=== PATIENT | female | born 1955 | race Caucasian/White ===

== ENCOUNTER 2018-12-27 10:52 | Outpatient (REF) | payer MEDICAID, SELFPAY ==
[2018-12-27 20:19] LABS: Anion Gap 5.4 mmol/L (3-11); BUN 15 mg/dL (7-18); CO2 30.6 mmol/L (21.0-32.0); CREATININE 0.72 mg/dL (0.55-1.02); Calcium 9.1 mg/dL (8.5-10.1); Chloride 103 mmol/L (98-107); Glucose 88 mg/dL (70-100); Potassium 4.1 mmol/L (3.5-5.1); Sodium 139 mmol/L (136-145)
[2018-12-27 20:59] LABS: Hemoglobin A1C 5.4 % (4.5-6.2)
== END 2018-12-27 11:12 ==
LOC: NCHCN 10:52
PROVIDERS: PCP Internal Medicine; Visit Provider Physician Assistant Medical
DX: I10 Essential (primary) hypertension (principal); Z13.1 Encounter for screening for diabetes mellitus
CPT/HCPCS: 80048; 83036

== ENCOUNTER 2020-01-01 11:01 | Outpatient (REF) | payer MEDICAID, SELFPAY ==
[2020-01-01 19:40] LABS: Abs Immature Grans 0.01 k/cumm (0.0-0.09); Absolute Basophil Count 0.03 k/cumm (0.0-0.2); Absolute Eosinophil Count 0.14 k/cumm (0.0-0.7); Absolute Monocyte Count 0.53 k/cumm (0.11-0.7); Absolute Neutrophil Count 5.38 k/cumm (1.2-6.7); Basophils % 0.4; HCT 39.6 % (36.0-46.0); HGB 12.8 g/dL (12.0-15.5); Immature Grans % 0.1 %; Lymphocytes % 14.1; Mean Corp. HGB Concentration 32.3 g/dL (32.0-36.0); Mean Corpuscular Hemoglobin 28.4 pg (27.0-33.0); Mean Corpuscular Volume 87.8 fL (80-95); Mean Platelet Volume 10.7 fL (8.0-11.0); Monocytes % 7.5; Neutrophils % 75.9; Platelet Count 271 x1000/uL (130-400); RBC 4.51 m/cumm (4.00-5.20); White Blood Cell Count 7.09 k/cumm (4.4-10.8)
[2020-01-01 20:22] LABS: ALT 14 U/L (14-59); AST 18 U/L (15-37); Albumin 3.9 g/dL (3.4-5.0); Alkaline Phosphatase 73 U/L (46-116); Anion Gap 8.8 mmol/L (3-11); BUN 15 mg/dL (7-18); Bilirubin, Total 0.7 mg/dL (0.2-1.0); CO2 28.2 mmol/L (21.0-32.0); CREATININE 0.85 mg/dL (0.55-1.02); Calcium 9.3 mg/dL (8.5-10.1); Calculated LDL 80 mg/dL (<100); Chloride 104 mmol/L (98-107); Cholesterol 175 mg/dL (<200); Glucose 90 mg/dL (74-106); HDL Cholesterol 83 mg/dL (40-60); Potassium 3.9 mmol/L (3.5-5.1); Sodium 141 mmol/L (136-145); Total Protein 7.2 g/dL (6.4-8.2); Triglyceride 64 mg/dL (<150)
[2020-01-01 20:34] LABS: Vitamin D 25 Total 98.1 ng/ml (30-100)
[2020-01-03 10:11] LABS: Hepatitis C Ab w Rflx HCV PCR Negative (Negative)
== END 2020-01-01 11:21 ==
LOC: NCHCN 11:01
PROVIDERS: PCP Internal Medicine; Visit Provider Physician Assistant
DX: E55.9 Vitamin D deficiency, unspecified (principal); I10 Essential (primary) hypertension; Z11.59 Encounter for screening for other viral diseases
CPT/HCPCS: 80053; 80061; 82306; 86803; 84443; 85025

== ENCOUNTER 2021-02-04 18:23 | Outpatient (REF) | payer MEDICAID, SELFPAY ==
[2021-02-04 20:49] LABS: BUN 15 mg/dL (7-18); CREATININE 0.8 mg/dL (0.55-1.02); Calcium 9.2 mg/dL (8.5-10.1); Calculated LDL 85 mg/dL (<100); Chloride 105 mmol/L (98-107); Cholesterol 160 mg/dL (<200); Glucose 93 mg/dL (74-106); HDL Cholesterol 61 mg/dL (40-60); Potassium 3.9 mmol/L (3.5-5.1); Sodium 143 mmol/L (136-145); Triglyceride 70 mg/dL (<150)
== END 2021-02-04 18:24 | disposition home or self-care (01) ==
LOC: NCHCN 18:23
PROVIDERS: PCP Internal Medicine; Visit Provider Physician Assistant
DX: I10 Essential (primary) hypertension (principal)
CPT/HCPCS: 80048; 80061

== ENCOUNTER 2022-04-02 12:18 | Outpatient (REF) | payer MEDICARE, MEDICAID, SELFPAY ==
[2022-04-02 19:35] LABS: BUN 18 mg/dL (7-18); CREATININE 0.9 mg/dL (0.55-1.02); Calcium 9.4 mg/dL (8.5-10.1); Chloride 104 mmol/L (98-107); Estimated GFR 70.51 (mL/min/1.73m2); Glucose 85 mg/dL (74-106); Potassium 4.1 mmol/L (3.5-5.1); Sodium 141 mmol/L (136-145)
== END 2022-04-02 12:19 | disposition home or self-care (01) ==
LOC: NCHCN 12:18
PROVIDERS: PCP Internal Medicine; Visit Provider Physician Assistant
DX: I10 Essential (primary) hypertension (principal)
CPT/HCPCS: 80048

== ENCOUNTER 2022-06-18 12:02 | Outpatient (REF) | payer MEDICARE, MEDICAID, SELFPAY ==
[2022-06-18 19:43] LABS: Bilirubin Negative (Negative); Blood Negative (Negative); Clarity Cloudy (Clear); Glucose Negative (Negative); Ketones Negative (Negative); Leukocyte Esterase Negative (Negative); Nitrite Negative (Negative); Specific Gravity >= 1.030 (1.005-1.025); Urobilinogen 0.2 EU/dL (Up TO 0.2)
[2022-06-18 19:55] LABS: TSH (W/Ref FT4) 1.81 uIU/mL (0.36-3.74)
[2022-06-18 20:03] LABS: Bacteria Few HPF (Negative); C & S Indicated? C&S Done As Ordered; Casts Negative LPF (Negative); Crystals Moderate Amorphous HPF (Negative); Epithelial Cells Few HPF (Negative); Mucus Negative (Negative); RBC 0-2 HPF (0-2)
== END 2022-06-18 12:03 | disposition home or self-care (01) ==
LOC: NCHCN 12:02
PROVIDERS: PCP Internal Medicine; Visit Provider Physician Assistant
DX: L65.9 Nonscarring hair loss, unspecified (principal); R39.9 Unspecified symptoms and signs involving the genitourinary system
CPT/HCPCS: 81003; 81015; 84443; 87086

== ENCOUNTER 2022-10-22 09:23 | Day surgery (SDC) | payer MEDICARE, MEDICAID, SELFPAY ==
[2022-10-22 10:11] VITALS: BP 140/76; PULSE 62; RESP 20; TEMP 36.6; O2SAT 98
--- NOTE | 2022-10-22 10:19 | W.ANESPRE ---
General Info Date of Service Date Performed: 10/22/22 Height: 5 ft 7 in Weight: 70.3 kg Body Mass Index (BMI): 24.3 Surgical Procedure: Operation Date: 10/22/22 12:40 Proposed Procedure Side Surgeon p Cataract Extraction with IOL Implant Right Bang Ramirez MD Meds Allergies and Home Medications Allergies Allergy/AdvReac Type Severity Reaction Status Date / Time adhesive tape Allergy Intermediate Verified 10/22/22 09:59 cephalexin Allergy Intermediate Verified 10/22/22 09:59 clindamycin Allergy Intermediate Verified 10/22/22 09:59 codeine Allergy Intermediate Verified 10/22/22 09:59 epinephrine Allergy Intermediate Verified 10/22/22 09:59 hydrochlorothiazide Allergy Intermediate Verified 10/22/22 10:02 [From Dyazide] hydrocodone Allergy Intermediate Verified 10/22/22 10:02 latex Allergy Intermediate Verified 10/22/22 10:02 lidocaine Allergy Intermediate Verified 10/22/22 10:02 magnesium aluminum silicate Allergy Intermediate Verified 10/22/22 10:02 penicillin V Allergy Intermediate Verified 10/22/22 10:02 spironolactone Allergy Intermediate Verified 10/22/22 10:02 [From Aldactone] Sulfa (Sulfonamide Allergy Intermediate Verified 10/22/22 10:02 Antibiotics) sulfamethoxazole Allergy Intermediate Verified 10/22/22 10:02 [From Bactrim] triamterene [From Dyazide] Allergy Intermediate Verified 10/22/22 10:02 trimethoprim [From Bactrim] Allergy Intermediate Verified 10/22/22 10:02 lisinopril Allergy Mild Verified 10/22/22 10:02 Home Medication Medication Instructions Recorded fluticasone propionate 50 1 spray intranasal BID 10/21/22 mcg/actuation nasal spray,suspension hydroxyzine HCl 25 mg tablet 25 mg PO QID PRN 10/21/22 losartan 50 mg tablet 50 mg PO DAILY 10/21/22 omeprazole 40 mg capsule,delayed 40 mg PO DAILY 10/21/22 release sumatriptan succinate 50 mg tablet 50 mg PO 10/21/22 triamcinolone acetonide 0.1 % 1 applic topical BID 10/21/22 topical cream acetaminophen 500 mg tablet 1,000 mg 10/22/22 cholecalciferol (vitamin D3) 100 1 10/22/22 mcg (4,000 unit) capsule Current Visit Medications: Current Medications Generic Name Dose Route Start Last Admin Trade Name Freq PRN Reason Stop Dose Admin Acetaminophen 1,000 mg 10/22/22 06:00 Acetaminophen 500 Mg Tab PO Q4H PRN PRN Miscellaneous Medication 0 ml 10/22/22 06:00 Tropicam./Phenyleph. (1/2.5%) 5 Ml Btl OD DIRECTED [facility] Miscellaneous Medication 0 ml 10/22/22 06:00 Prednisolone 1%, Moxifloxacin 0.5%, Nepafenac 0.1% 5ml Btl OD DIRECTED [facility] Tetracaine HCl 0 ml 10/22/22 06:00 Tetracaine 0.5% 4 Ml Btl OD DIRECTED [facility] PFSH Active Problems Active Problems: Problem Status Onset Code Nuclear age-related cataract, right eye H25.11 Cortical cataract of right eye H26.9 Medical History Medical History Cataract GERD (gastroesophageal reflux disease) Hypertension Itching Surgical History Surgical History H/O vein stripping History of cholecystectomy History of colonoscopy History of hernia repair History of knee replacement Hx of carpal tunnel repair bilateral Hx of esophagogastroduodenoscopy Tobacco Smoking/Tobacco Use Status: Never Alcohol Alcohol Intake: current Alcohol intake frequency: a few times a week Alcohol type: beer Substance Use Substance use type: does not use Details: alcohol: t-5 Vital Signs and Lab Results Vital Signs Most Recent Vital Signs in EMR: Most Recent Vital Signs Temp Pulse Resp BP Pulse Ox 36.6 C 62 20 140/76 98 10/22/22 10:11 10/22/22 10:11 10/22/22 10:11 10/22/22 10:11 10/22/22 10:11 Lab Results Blood Type / Crossmatch: No Data to Display Complete Blood Count: No Data to Display Complete Metabolic Panel: No Data to Display Liver Function Panel: No Data to Display Coagulation Panel: No Data to Display Cardiac Panel: No Data to Display Arterial Blood Gas: No Data to Display Venous Blood Gas: No Data to Display Pancreas Panel: No Data to Display Thyroid Panel: No Data to Display Infectious Disease: No Data to Display Blood Cultures: No Data to Display Toxicology Panel: No Data to Display Anesthesia Assessment and Plan Anesthesia History Personal History: No History of Anesthesia Complications Family History: No Family History of Anesthesia Complications Exercise Tolerance Exercise Tolerance: Metabolic Equivalents>4 Cardiac & Pulmonary Exam Cardiac Exam: Normal S1/S2 Heart Sounds Pulmonary Exam: Clear Bilateral Breath Sounds Implantable Cardiac Device Does patient have a Pacemaker or an ICD?: No Airway Exam Known Difficult Airway: No Mallampati Class: 2 Mouth Opening: Normal (> 3cm) Thyromental Distance: Greater than 3 cm Neck Range of Motion: Full ROM Neck Circumference: Normal Teeth Condition: Normal Dentition ASA Classification ASA Score: ASA 2 Emergency Case?: No NPO Status NPO Status: NPO Clears >2 hours, Solids >8 hours Anesthesia Plan Resuscitation Status: Full Code Anesthesia Technique: MAC Anesthesia Airway Planned: Natural Airway Monitors Used: Standard Monitors
[2022-10-22 11:00] VITALS: BMI 24.3
[2022-10-22] MEDS: Tropicam./Phenyleph. (1/2.5%) 5 ML BTL OD ×3 (11:05→11:22)
[2022-10-22] MEDS: Lidocaine 1% Pres-Free 5 ML VIAL (11:57)
[2022-10-22] MEDS: Tetracaine 0.5% 4 ML BTL OD (11:57)
[2022-10-22] MEDS: Duovisc Viscoelastic System EACH 1 EACH (11:58)
[2022-10-22] MEDS: Balanced Salt Soln.-PLUS 500 ML BAG (11:58)
[2022-10-22] MEDS: Povidone-Iodine Ophth 30 ML BTL (11:59)
[2022-10-22] MEDS: Phenylephrine/Lidocaine (15/10) MG/ML 1 ML VIAL (11:59)
[2022-10-22 12:10] VITALS: BP 142/82; PULSE 50; RESP 16; TEMP 36.5; O2SAT 98
--- NOTE | 2022-10-22 12:11 | PDOC.DSDIS_ITS ---
Date of service: 10/22/22 Time of Service: 12:11 Discharge Plan Disposition Patient Disposition: Home Discharge Details Attending Provider: Bang Ramirez Primary Care Provider: Elsy Wolff Home Meds and New Rx's Prescriptions: No Action losartan 50 mg Tablet 50 mg PO DAILY sumatriptan succinate 50 mg Tablet 50 mg PO omeprazole 40 mg Capsule,Delayed Release(Dr/Ec) 40 mg PO DAILY triamcinolone acetonide 0.1 % Cream 1 applic TOPICAL BID hydroxyzine HCl 25 mg Tablet 25 mg PO QID PRN fluticasone propionate 50 mcg/actuation [place],Suspension 1 spray INTRANASAL BID Rx Instructions: administer into each nostril acetaminophen 500 mg Tablet 1,000 mg Vitamin D3 100 mcg (4,000 unit) Capsule 1 Discharge Instructions Stand Alone Forms: Post-op Topical Cataract, Press Ganey (DSU) Discharge Orders Discharge Orders: Discharge Order (Routine); Ordered 10/22/22 Ordered By: Bang Ramirez DS: Diagnosis Discharge Diagnosis (1) Nuclear age-related cataract, right eye: Status: Resolved (2) Cortical cataract of right eye: Status: Resolved
--- NOTE | 2022-10-22 12:14 | W.PM.OP ---
Date of service: 10/22/22 Time of Service: 12:14 Operative Note Operative Note DATE OF PROCEDURE: 10/22/22 PRE-OP DIAGNOSIS: Nuclear/cortical cataract, right eye POST-OP DIAGNOSIS: same PROCEDURE: Cataract extraction using phacoemulsification with intraocular lens implant, right eye SURGEON: Bang Ramirez ANESTHESIA TYPE: Local By Surgeon and MAC Refer to Anesthesia Record ESTIMATED BLOOD LOSS: 0 PATHOLOGY: none sent COMPLICATIONS: None Patient was transported to: same day Patient's condition: stable Implants: Felix & Felix Tecnis Eyhance [id number] Indications: Progressive visual loss due to cataract, right eye Procedure Description: CATARACT SURGERY OPERATIVE REPORT PREOPERATIVE DIAGNOSIS: 1. Nuclear/cortical cataract, right eye POSTOPERATIVE DIAGNOSIS: Same OPERATION: 1. Cataract extraction using phacoemulsification with posterior chamber intraocular lens implant, right eye. IOL: IOL Manager Requirements/Model: Felix & Felix Tecnis Eyhance DIB00 IOL Power: + 29.0 diopters IOL Serial Number: [id number] Optic Diameter: 6.0mm Haptic/Overall Diameter: 13.0mm PHACO INFO: [place] [employer] Vision System with OZil and Active Fluidics Cumulative Dispersed Energy (CDE): 8.58 seconds SURGEON: Bang Ramirez MD, HARISH ANESTHESIA: Monitored Anesthesia Care (MAC), with local sub-tenon's anesthetic infiltration COMPLICATIONS: None SPECIMENS: None INDICATIONS FOR PROCEDURE: The patient is a 67-year-old lady with history of high hyperopia who has developed a symptomatic nuclear/cortical cataract in her right eye. The option of cataract surgery was to the patient and she wished to proceed. See office notes for details. PROCEDURE: The correct surgical eye was identified and marked as the right eye and the pupil was dilated in the preoperative area using mydriatics and cycloplegics. The dilated pupil size was 8.0 mm. The patient elected to proceed without oral sedation. The patient was brought to the operating room where cardiopulmonary monitoring was instituted and surgical time-out was performed, confirming the correct operative eye and IOL power. Topical anesthesia was administered and ophthalmic povidone-iodine 5% was instilled into the conjunctival fornices. Lidocaine gel was applied to the cornea and the amelia-ocular area was prepped with Betadine 10% solution and draped in the usual sterile fashion for intraocular surgery, including an aperture drape. A Tegaderm transparent film dressing was cut in half and used to cover the lashes and lid margins. Care was taken to sequester the lashes and lid margins under the Tegaderm dressing. A lid speculum was placed between the lids of the operative eye and the Dewayne Lux[employer] Revalia operating microscope was maneuvered into position. Gilmar scissors were then used to make a conjunctival buttonhole approximately 6mm posterior to the limbus in the inferonasal quadrant. Blunt dissection was carried out to expose bare sclera, and a blunt-tipped sub-tenon?s anesthesia cannula was introduced and passed posteriorly along the globe where non-preserved plain lidocaine was injected into posterior sub-Tenon?s space. A sideport knife was used to make a paracentesis port inferotemporally. Intraocular phenylephrine/lidocaine was injected into the anterior chamber. The anterior chamber was filled with viscoelastic. A keratome knife was used to construct a 2-plane near-clear corneal tunnel extending 2.0mm into clear cornea superiortemporally. A flap was raised on the anterior capsule and capsulorhexis forceps were used to complete a continuous curvilinear capsulorhexis of 5.5 mm. Balanced salt solution was then used to perform cortical cleaving hydrodissection and nuclear hydrodelineation until the lens could be freely rotated within the capsular bag. The lens nucleus was then disassembled and removed within the capsular bag and iris plane using phacoemulsification. Residual cortical material was removed using the I/A handpiece. The posterior capsule was carefully polished to remove as much residual lens epithelial cells as safely possible. The capsular bag was then inflated and the anterior chamber deepened with viscoelastic. The lens implant described above was inserted into the capsular bag using the Felix and Az Simplicity pre-loaded injector. A Kuglen hook was used to dial the IOL into position. Residual viscoelastic was then removed first from posterior to the IOL, then from the anterior chamber using the I/A handpiece. The lens implant was noted to center nicely within the capsular bag. The incisions were stromally hydrated, and the anterior chamber was reformed using BSS. Then 0.5cc of moxifloxacin 1.0mg/ml were injected into the capsular bag and anterior chamber. The incisions were checked with a Weck spear and found to be secure. Several drops of ophthalmic povidone-iodine 5% were then applied to the eye followed by two drops of Imprimis combination prednisolone/moxifloxacin/nepafenac solution. The drapes were removed and a clear plastic protective eye shield was placed over the eye. The patient was then returned to Same Day Surgery in stable condition.
--- NOTE | 2022-10-22 12:34 | W.ANESPOSTOP ---
Postoperative Evaluation Date, Time and Location Date Performed: 10/22/22 Time Performed: 12:20 Patient Location: Day Surgery Unit Vital Signs Most Recent Imported Vital Signs: Most Recent Vital Signs Temp Pulse Resp BP Pulse Ox 36.5 C 50 L 16 142/82 H 98 10/22/22 12:10 10/22/22 12:10 10/22/22 12:10 10/22/22 12:10 10/22/22 12:10 Pain Score Most Recent Pain Score: Most Recent Pain Score Pain Level 0 10/22/22 12:10 Assessment Mental Status: Awake (Alert & Oriented to Patient Baseline) Airway and Respiratory Function: Patent airway with normal (patient baseline) respiratory exam Cardiovascular Function: Hemodynamically Stable Hydration Status: Adequately Hydrated Nausea & Vomiting: No Nausea or Vomiting Pain: Pt. Denies Any Pain Peripheral Nerve Block: Patient did not receive a nerve block
== END 2022-10-22 12:37 | disposition home or self-care (01) ==
LOC: SUR 09:25
PROVIDERS: PCP Physician Assistant; Visit Provider Ophthalmology
PROC: (CPT 66984; principal; 2022-10-22 12:30)
DX: H25.11 Age-related nuclear cataract, right eye (principal); I10 Essential (primary) hypertension; H26.9 Unspecified cataract; K21.00 Gastro-esophageal reflux disease with esophagitis, without bleeding
CPT/HCPCS: 66984; V2632

== ENCOUNTER 2022-11-05 06:52 | Day surgery (SDC) | payer MEDICARE, MEDICAID, SELFPAY ==
[2022-11-05 06:59] VITALS: BP 157/80; PULSE 63; RESP 17; TEMP 36.6; O2SAT 97
[2022-11-05] MEDS: Tropicam./Phenyleph. (1/2.5%) 5 ML BTL OS ×3 (07:05→07:15)
--- NOTE | 2022-11-05 07:32 | W.ANESPRE ---
General Info Date of Service Date Performed: 11/05/22 Height: 5 ft 7 in Weight: 71.2 kg Body Mass Index (BMI): 24.5 Surgical Procedure: Operation Date: 11/05/22 08:40 Proposed Procedure Side Surgeon p Cataract Extraction with IOL Implant Left Bang Ramirez MD Meds Allergies and Home Medications Allergies Allergy/AdvReac Type Severity Reaction Status Date / Time adhesive tape Allergy Intermediate Hives Verified 11/05/22 07:26 cephalexin Allergy Intermediate hives, Verified 11/05/22 07:26 itchy clindamycin Allergy Intermediate hives, Verified 11/05/22 07:26 itching codeine Allergy Intermediate hives, Verified 11/05/22 07:26 itching epinephrine Allergy Intermediate Verified 11/05/22 07:10 hydrochlorothiazide Allergy Intermediate hives, Verified 11/05/22 07:26 [From Dyazide] itchy hydrocodone Allergy Intermediate hives, Verified 11/05/22 07:26 itchy latex Allergy Intermediate hives, Verified 11/05/22 07:26 itchy lidocaine Allergy Intermediate pt unsure Verified 11/05/22 07:26 magnesium aluminum silicate Allergy Intermediate hives, Verified 11/05/22 07:26 itchy penicillin V Allergy Intermediate hives, Verified 11/05/22 07:26 itchy spironolactone Allergy Intermediate pt unsure Verified 11/05/22 07:26 [From Aldactone] Sulfa (Sulfonamide Allergy Intermediate hives, Verified 11/05/22 07:26 Antibiotics) itching sulfamethoxazole Allergy Intermediate hives, Verified 11/05/22 07:26 [From Bactrim] itchy triamterene [From Dyazide] Allergy Intermediate hives, Verified 11/05/22 07:26 itching trimethoprim [From Bactrim] Allergy Intermediate hives, Verified 11/05/22 07:26 itchy lisinopril Allergy Mild hives, Verified 11/05/22 07:26 itchy Home Medication Medication Instructions Recorded fluticasone propionate 50 1 spray intranasal BID 10/21/22 mcg/actuation nasal spray,suspension hydroxyzine HCl 25 mg tablet 25 mg PO QID PRN 10/21/22 losartan 50 mg tablet 50 mg PO DAILY 10/21/22 omeprazole 40 mg capsule,delayed 40 mg PO DAILY 10/21/22 release sumatriptan succinate 50 mg tablet 50 mg PO DIRECTED 10/21/22 triamcinolone acetonide 0.1 % 1 applic topical BID 10/21/22 topical cream acetaminophen 500 mg tablet 1,000 mg PO DAILY 10/22/22 cholecalciferol (vitamin D3) 100 4,000 unit PO DAILY 10/22/22 mcg (4,000 unit) capsule Current Visit Medications: Current Medications Generic Name Dose Route Start Last Admin Trade Name Freq PRN Reason Stop Dose Admin Acetaminophen 1,000 mg 11/05/22 06:00 Acetaminophen 500 Mg Tab PO Q4H PRN PRN Miscellaneous Medication 0 ml 11/05/22 06:00 11/05/22 07:15 Tropicam./Phenyleph. (1/2.5%) 5 Ml Btl OS 1 drp DIRECTED [facility] Administration Miscellaneous Medication 0 ml 11/05/22 06:00 Prednisolone 1%, Moxifloxacin 0.5%, Nepafenac 0.1% 5ml Btl OS DIRECTED [facility] Tetracaine HCl 0 ml 11/05/22 06:00 Tetracaine 0.5% 4 Ml Btl OS DIRECTED [facility] PFSH Active Problems Active Problems: Problem Status Onset Code Nuclear age-related cataract, right eye H25.11 Cortical cataract of right eye H26.9 Nuclear age-related cataract, left eye H25.12 Cortical age-related cataract, left eye H25.012 Medical History Medical History Cataract GERD (gastroesophageal reflux disease) Hypertension Itching Surgical History Surgical History H/O vein stripping History of cataract surgery History of cholecystectomy History of colonoscopy History of hernia repair History of knee replacement Hx of carpal tunnel repair bilateral Hx of esophagogastroduodenoscopy Tobacco Smoking/Tobacco Use Status: Never Alcohol Alcohol Intake: current Alcohol intake frequency: a few times a week Alcohol type: beer Substance Use Substance use type: does not use Details: alcohol: t-5 Vital Signs and Lab Results Vital Signs Most Recent Vital Signs in EMR: Most Recent Vital Signs Temp Pulse Resp BP Pulse Ox 36.6 C 63 17 157/80 H 97 11/05/22 06:59 11/05/22 06:59 11/05/22 06:59 11/05/22 06:59 11/05/22 06:59 Lab Results Blood Type / Crossmatch: No Data to Display Complete Blood Count: No Data to Display Complete Metabolic Panel: No Data to Display Liver Function Panel: No Data to Display Coagulation Panel: No Data to Display Cardiac Panel: No Data to Display Arterial Blood Gas: No Data to Display Venous Blood Gas: No Data to Display Pancreas Panel: No Data to Display Thyroid Panel: No Data to Display Infectious Disease: No Data to Display Blood Cultures: No Data to Display Toxicology Panel: No Data to Display Anesthesia Assessment and Plan Anesthesia History Personal History: No History of Anesthesia Complications Family History: No Family History of Anesthesia Complications Exercise Tolerance Exercise Tolerance: Metabolic Equivalents>4 Cardiac & Pulmonary Exam Cardiac Exam: Normal S1/S2 Heart Sounds Pulmonary Exam: Clear Bilateral Breath Sounds Implantable Cardiac Device Does patient have a Pacemaker or an ICD?: No Airway Exam Known Difficult Airway: No Mallampati Class: 2 Mouth Opening: Normal (> 3cm) Thyromental Distance: Greater than 3 cm Neck Range of Motion: Full ROM Neck Circumference: Normal Teeth Condition: Normal Dentition ASA Classification ASA Score: ASA 2 Emergency Case?: No NPO Status NPO Status: NPO Clears >2 hours, Solids >8 hours Anesthesia Plan Resuscitation Status: Full Code Anesthesia Technique: MAC Anesthesia Airway Planned: Natural Airway Monitors Used: Standard Monitors
[2022-11-05 07:33] VITALS: BMI 24.5
[2022-11-05] MEDS: Balanced Salt Soln.-PLUS 500 ML BAG (08:22)
[2022-11-05] MEDS: Tetracaine 0.5% 4 ML BTL OS (08:22)
[2022-11-05] MEDS: Duovisc Viscoelastic System EACH 1 EACH (08:23)
[2022-11-05] MEDS: Lidocaine 1% Pres-Free 5 ML VIAL (08:23)
[2022-11-05] MEDS: Phenylephrine/Lidocaine (15/10) MG/ML 1 ML VIAL (08:24)
[2022-11-05] MEDS: Povidone-Iodine Ophth 30 ML BTL (08:24)
[2022-11-05 08:38] VITALS: BP 138/80; PULSE 55; RESP 18; TEMP 36.5; O2SAT 98
--- NOTE | 2022-11-05 08:39 | W.PM.DSUDISC ---
Date of service: 11/05/22 Time of Service: 08:39 Discharge Plan Disposition Patient Disposition: Home Discharge Details Attending Provider: Bang Ramirez Primary Care Provider: Elsy Wolff Home Meds and New Rx's Prescriptions: No Action losartan 50 mg Tablet 50 mg PO DAILY sumatriptan succinate 50 mg Tablet 50 mg PO DIRECTED omeprazole 40 mg Capsule,Delayed Release(Dr/Ec) 40 mg PO DAILY triamcinolone acetonide 0.1 % Cream 1 applic TOPICAL BID hydroxyzine HCl 25 mg Tablet 25 mg PO QID PRN fluticasone propionate 50 mcg/actuation [place],Suspension 1 spray INTRANASAL BID Rx Instructions: administer into each nostril acetaminophen 500 mg Tablet 1,000 mg PO DAILY Vitamin D3 100 mcg (4,000 unit) Capsule 4,000 unit PO DAILY Discharge Instructions Stand Alone Forms: Post-op Topical Cataract, Grazyna Macdonaldey (DSU) Discharge Orders Discharge Orders: Discharge Order (Routine); Ordered 11/05/22 Ordered By: Bang Ramirez DS: Diagnosis Discharge Diagnosis (1) Nuclear age-related cataract, left eye: Status: Resolved (2) Cortical age-related cataract, left eye: Status: Resolved
--- NOTE | 2022-11-05 08:40 | ROE_ITS ---
Date of service: 11/05/22 Time of Service: 08:40 Operative Note Operative Note DATE OF PROCEDURE: 11/05/22 PRE-OP DIAGNOSIS: Nuclear/cortical cataract, left eye POST-OP DIAGNOSIS: same PROCEDURE: Cataract extraction using phacoemulsification with intraocular lens implant, left eye SURGEON: Bang Ramirez ANESTHESIA TYPE: Local By Surgeon and MAC Refer to Anesthesia Record PATHOLOGY: none sent COMPLICATIONS: None Patient was transported to: same day Patient's condition: stable Implants: Felix and Felix Tecnis Eyhance DIB00 Indications: Progressive decreased vision due to cataract, left eye Procedure Description: CATARACT SURGERY OPERATIVE REPORT PREOPERATIVE DIAGNOSIS: 1. Nuclear/cortical cataract, left eye POSTOPERATIVE DIAGNOSIS: Same OPERATION: 1. Cataract extraction using phacoemulsification with posterior chamber intraocular lens implant, left eye. IOL: IOL Joiner Apprentice/Model: Felix & Felix Tecnis Eyhance DIB00 IOL Power: + 26.0 diopters IOL Serial Number: [id number] Optic Diameter: 6.0 mm Haptic/Overall Diameter: 13.0 mm PHACO INFO: [employer] Vision System with OZil and Active Fluidics Cumulative Dispersed Energy (CDE): 4.77 seconds SURGEON: Bang Ramirez MD, HARISH ANESTHESIA: Monitored A [facility] (MAC), with local sub-tenon's anesthetic infiltration COMPLICATIONS: None SPECIMENS: None INDICATIONS FOR PROCEDURE: The patient is a 67-year-old lady with history of diminished visual acuity in her left eye secondary to the development of nuclear/cortical cataract. She has already undergone cataract surgery in the right eye and is doing well postoperatively. She now presents for cataract surgery in the left eye. See office notes for detailed information. PROCEDURE: The correct surgical eye was identified and marked as the left eye and the pupil was dilated in the preoperative area using mydriatics and cycloplegics. The dilated pupil size was 7.0 mm. The patient elected to proceed without oral sedation. The patient was brought to the operating room where cardiopulmonary monitoring was instituted and surgical time-out was performed, confirming the correct operative eye and IOL power. Topical anesthesia was administered and ophthalmic povidone-iodine 5% was instilled into the conjunctival fornices. Lidocaine gel was applied to the cornea and the amelia-ocular area was prepped with Betadine 10% solution and draped in the usual sterile fashion for intraocular surgery, including an aperture drape. A Tegaderm transparent film dressing was cut in half and used to cover the lashes and lid margins. Care was taken to sequester the lashes and lid margins under the Tegaderm dressing. A lid speculum was placed between the lids of the operative eye and the Dewayne Lux[employer] Revalia operating microscope was maneuvered into position. Gilmar scissors were then used to make a conjunctival buttonhole approximately 6mm posterior to the limbus in the inferonasal quadrant. Blunt dissection was carried out to expose bare sclera, and a blunt-tipped sub-tenon?s anesthesia cannula was introduced and passed posteriorly along the globe where non- preserved plain lidocaine was injected into posterior sub-Tenon?s space. A sideport knife was used to make a paracentesis port superiorly/superiortemporally. Intraocular phenylephrine/lidocaine was injected int the anterior chamber.. The anterior chamber was filled with viscoelastic. A keratome knife was used to construct a 2-plane near-clear corneal tunnel extending 2.0mm into clear cornea temporally. A flap was raised on the anterior capsule and capsulorhexis forceps were used to complete a continuous curvilinear capsulorhexis of 5.5 mm. Balanced salt solution was then used to perform cortical cleaving hydrodissection and nuclear hydrodelineation until the lens could be freely rotated within the capsular bag. The lens nucleus was then disassembled and removed within the capsular bag and iris plane using phacoemulsification. Residual cortical material was removed using the 45-degree angled silicone I/A tip with 0.3mm port. The posterior capsule was carefully polished to remove as much residual lens epithelial cells as safely possible. The capsular bag was then inflated and the anterior chamber deepened with viscoelastic. The lens implant described above was inserted into the capsular bag using the Felix and Felix Simplicity pre-loaded injector. . A Kuglen hook was used to dial the IOL into position. Residual viscoelastic was then removed first from posterior to the IOL, then from the anterior chamber using the I/A handpiece. The lens implant was noted to center nicely within the capsular bag. The incisions were stromally hydrated, and the anterior chamber was reformed using BSS. Then 0.5cc of moxifloxacin 1.0mg/ml were injected into the capsular bag and anterior chamber. The incisions were checked with a Weck spear and found to be secure. Several drops of ophthalmic povidone-iodine 5% were then applied to the eye followed by two drops of Imprimis combination prednisolone/moxifloxacin/nepafenac solution. The drapes were removed and a clear plastic protective eye shield was placed over the eye. The patient was then returned to Same Day Surgery in stable condition.
--- NOTE | 2022-11-05 08:48 | W.ANESPOSTOP ---
Postoperative Evaluation Date, Time and Location Date Performed: 11/05/22 Time Performed: 08:48 Patient Location: Day Surgery Unit Vital Signs Most Recent Imported Vital Signs: Most Recent Vital Signs Temp Pulse Resp BP Pulse Ox 36.5 C 55 L 18 138/80 98 11/05/22 08:38 11/05/22 08:38 11/05/22 08:38 11/05/22 08:38 11/05/22 08:38 Pain Score Most Recent Pain Score: Most Recent Pain Score Pain Level 0 11/05/22 08:38 Assessment Mental Status: Awake (Alert & Oriented to Patient Baseline) Airway and Respiratory Function: Patent airway with normal (patient baseline) respiratory exam Cardiovascular Function: Hemodynamically Stable Hydration Status: Adequately Hydrated Nausea & Vomiting: No Nausea or Vomiting Pain: Pt. Denies Any Pain Peripheral Nerve Block: Patient did not receive a nerve block
== END 2022-11-05 08:58 | disposition home or self-care (01) ==
LOC: SUR 06:52
PROVIDERS: PCP Physician Assistant; Visit Provider Ophthalmology
PROC: (CPT 66984; principal; 2022-11-05 08:30)
DX: H25.12 Age-related nuclear cataract, left eye (principal); H25.012 Cortical age-related cataract, left eye; H25.11 Age-related nuclear cataract, right eye; H26.9 Unspecified cataract; I10 Essential (primary) hypertension; K21.9 Gastro-esophageal reflux disease without esophagitis
CPT/HCPCS: 66984; V2632

== ENCOUNTER 2023-04-21 13:52 | Outpatient (REF) | payer MEDICARE, MEDICAID, SELFPAY ==
[2023-04-21 19:26] LABS: Anion Gap 8.4 mmol/L (3-11); BUN 11 mg/dL (7-18); CO2 26.6 mmol/L (21.0-32.0); CREATININE 0.9 mg/dL (0.55-1.02); Calcium 9.4 mg/dL (8.5-10.1); Chloride 104 mmol/L (98-107); Estimated GFR 70.07 (mL/min/1.73m2); Glucose 89 mg/dL (74-106); Potassium 3.9 mmol/L (3.5-5.1); Sodium 139 mmol/L (136-145)
== END 2023-04-21 13:53 | disposition home or self-care (01) ==
LOC: NCHCN 13:52
PROVIDERS: PCP Physician Assistant; Visit Provider Physician Assistant
DX: I10 Essential (primary) hypertension (principal)
CPT/HCPCS: 80048

== ENCOUNTER 2024-05-24 21:57 | Outpatient (REF) | payer MEDICARE, MEDICAID, SELFPAY ==
[2024-05-24 19:02] LABS: Anion Gap 4.9 mmol/L (3-11); BUN 20 mg/dL (7-18); CO2 31.1 mmol/L (21.0-32.0); CREATININE 1.2 mg/dL (0.55-1.02); Calcium 9.3 mg/dL (8.5-10.1); Chloride 107 mmol/L (98-107); Estimated GFR 49.31 (mL/min/1.73m2); Glucose 95 mg/dL (74-106); Potassium 4.9 mmol/L (3.5-5.1); Sodium 143 mmol/L (136-145)
== END 2024-05-24 21:58 | disposition home or self-care (01) ==
LOC: NCHCN 21:57
PROVIDERS: PCP Physician Assistant; Visit Provider Physician Assistant
DX: I10 Essential (primary) hypertension (principal)
CPT/HCPCS: 80048

== ENCOUNTER 2024-06-26 01:55 | Outpatient (CLI) | payer MEDICARE, SELFPAY ==
--- NOTE | 2024-06-26 12:57 | DI.RAD_ITS ---
Exam(s) XR FOOT LT COMPLETE EXAM: XR FOOT LT COMPLETE CLINICAL HISTORY: Painful hammer toes Left foot,lt foot pain,m79.672,m20.42. TECHNIQUE: 2D digital imaging was performed of the left foot. Three images were obtained. AP, obli que and lateral views were obtained. COMPARISON: No exams were available for comparison FINDINGS: BONES: No acute fracture is present. No bony destructive lesion is seen. There is a small plantar perla caneal spur. JOINTS: No dislocation present. Mild degenerative changes are seen in the foot particularly at the ta lonavicular joint in the articulation of the navicular and the cuneiform. There is a very mild hallu x valgus deformity. There are hammertoe deformities present, which involve the 2nd through 5th toes. SOFT TISSUE: Vascular calcification is present. IMPRESSION: Mild hallux valgus deformity, mild degenerative changes and hammertoe deformities. DATA REPOSITORY: RADIATION DOSE DELIVERED:
--- NOTE | 2024-06-26 12:57 | DI.RAD_ITS ---
Exam(s) XR FOOT RT COMPLETE EXAM: XR FOOT RT COMPLETE CLINICAL HISTORY: Painful hammertoes rt foot,rt foot pain,m79.671,m20.41. TECHNIQUE: 2D digital imaging was performed of the right foot. Three images were obtained. AP, obl ique and lateral views were obtained. COMPARISON: No exams were available for comparison FINDINGS: BONES: No acute fracture is present. No bony destructive lesion is seen. There is a small plantar perla caneal spur. There are hammertoes of the 2nd through 4th toes. JOINTS: No dislocation present. There is a mild hallux valgus deformity. There are degenerative hutton ges seen at the tarsometatarsal joints. There is subchondral sclerosis and subchondral cysts present predominantly involving the 2nd through 5th TMT joints. SOFT TISSUE: Vascular calcifications are present. IMPRESSION: Chronic changes seen in the right foot particularly at the 2nd through 5th TMT joints. DATA REPOSITORY: RADIATION DOSE DELIVERED:
== END 2024-06-26 02:15 ==
PROVIDERS: PCP Physician Assistant; Visit Provider Podiatrist
DX: M20.42 Other hammer toe(s) (acquired), left foot; M20.41 Other hammer toe(s) (acquired), right foot
CPT/HCPCS: 20600; 73630

== ENCOUNTER 2024-10-12 14:55 | Outpatient (REF) | payer MEDICARE, SELFPAY ==
[2024-10-12 18:40] LABS: Abs Immature Grans 0.02 10^3/uL (0.0-0.06); Absolute Basophil Count 0.08 10^3/uL (0.0-0.2); Absolute Eosinophil Count 0.11 10^3/uL (0.0-0.7); Absolute Lymphocyte Count 1.37 10^3/uL (1.2-3.4); Absolute Monocyte Count 0.38 10^3/uL (0.1-0.8); Basophils % 1.2 %; Eosinophils % 1.6 %; HCT 38.9 % (36.0-46.0); HGB 12.3 g/dL (11.2-15.7); Immature Grans % 0.3 %; Lymphocytes % 20.3 %; MCH 28.5 pg (27.0-33.0); MCHC 31.6 % (32.0-36.0); MCV 90 fL (80-95); MPV 10.6 fL (8.0-11.0); Monocytes % 5.6 %; Platelet Count 241 10^3/uL (130-400); RBC 4.32 10^6/uL (3.93-5.22); RDW 13.9 % (11.7-14.6); WBC 6.76 10^3/uL (4.4-10.8)
[2024-10-12 19:06] LABS: Iron 63 ug/dL (50-170); Total Iron Binding Capacity 260 ug/dL (250-450); Transferrin Sat 24 % (15-50)
[2024-10-12 19:43] LABS: ALT 23 U/L (14-59); AST 23 U/L (15-37); Albumin 4.1 g/dL (3.4-5.0); Alkaline Phosphatase 91 U/L (46-116); Anion Gap 6.5 mmol/L (3-11); BUN 23 mg/dL (7-18); Bilirubin, Total 0.3 mg/dL (0.2-1.0); CO2 29.5 mmol/L (21.0-32.0); CREATININE 1.2 mg/dL (0.55-1.02); Calcium 9.9 mg/dL (8.5-10.1); Chloride 106 mmol/L (98-107); Estimated GFR 49.31 (mL/min/1.73m2); Ferritin 155 ng/mL (8-252); Folate 16.6 ng/mL (8.6-20.0); Glucose 99 mg/dL (74-106); Potassium 4.6 mmol/L (3.5-5.1); Sodium 142 mmol/L (136-145); TSH 2.12 uIU/mL (0.36-3.74); Total Protein 7.9 g/dL (6.4-8.2); Vitamin B12 364 pg/mL (193-986)
[2024-10-12 20:07] LABS: FREE T4 0.86 ng/dL (0.76-1.46)
== END 2024-10-12 14:56 | disposition home or self-care (01) ==
LOC: NCHCN 14:55
PROVIDERS: PCP Physician Assistant; Visit Provider Physician Assistant
DX: R22.2 Localized swelling, mass and lump, trunk (principal); L60.3 Nail dystrophy
CPT/HCPCS: 80053; 82607; 82728; 82746; 83540; 83550; 84439; 84443; 85025

== ENCOUNTER 2025-02-22 21:35 | Outpatient (REF) | payer MEDICARE, SELFPAY ==
[2025-02-22 19:15] LABS: Iron 63 ug/dL (50-170); Total Iron Binding Capacity 280 ug/dL (250-450); Transferrin Sat 23 % (15-50)
[2025-02-22 19:33] LABS: Ferritin 194 ng/mL (8-252)
== END 2025-02-22 21:36 | disposition home or self-care (01) ==
LOC: NCHCN 21:35
PROVIDERS: PCP Physician Assistant; Visit Provider Physician Assistant
DX: D64.9 Anemia, unspecified (principal)
CPT/HCPCS: 82728; 83540; 83550

== ENCOUNTER 2025-06-27 12:28 | Outpatient (REF) | payer MEDICARE, SELFPAY | END 2025-06-27 12:29 | disposition home or self-care (01) | LOC: NCHCN 12:28 | PROVIDERS: PCP Physician Assistant; Visit Provider Physician Assistant | DX: I83.018 Varicose veins of right lower extremity with ulcer other part of lower leg (principal); L97.819 Non-pressure chronic ulcer of other part of right lower leg with unspecified severity | CPT/HCPCS: 87077; 87070; 87186; 87205 ==